=== PATIENT | female | born 1990 | race Caucasian/White ===

== ENCOUNTER 2019-12-14 13:15 | Outpatient (REF) | payer MEDICARE, MEDICAID, SELFPAY ==
--- NOTE | 2019-12-14 15:13 | MHC.AU.P13 ---
Adult Audiological Evaluation Date of Visit: 12/14/19 Reason for Appointment: History of suspected hearing loss. Has hearing been tested previously?: Yes Previous Hearing Test Results: At our clinic on 01/30/2019- Otoacoustic emissions were absent from 1-8 kHz in the right ear. In the left ear, emissions were reduced at 1.5-2, 4, and 8 kHz, and present at 1, 3, and 6 kHz. The reduced/absent emissions suggested hearing loss is likely present. Normal middle-ear function bilaterally. Patient did not consistently respond for testing in soundfield. On 03/05/2019, an auditory brainstem response (ABR) evaluation was performed at this clinic. At an 80 dBnHL click, the right ear produced waveforms of poor morphology that were not repeatable. This is suggestive of cochlear or retrocochlear pathology and hearing loss. The left ear had repeatable waveforms and good morphology at 80 dBnHL. Threshold ABR was attempted; however, there was too much myogenic noise to accurately determine thresholds. A sedated ABR was recommended. Medical History: Medical History: Autism Spectrum Disorder, Intellectual Disability, Diabetes, Hypertension Otoscopy: Right Ear: Unremarkable Left Ear: Mostly occluded with cerumen Tympanometry: Right Ear: Normal Middle Ear System (Type A) Left Ear: Hypercompliant Middle Ear System (Type Ad) Otoacoustic Emissions: Frequency Range Used: 1.6-8 kHz Right Ear Results: Absent Emissions Analysis: Absent emissions suggest cochlear dysfunction. Hearing loss may be present. Left Ear Results: Could Not Test Analysis: Testing attempted in left ear, but an adequate seal could not be obtained due to cerumen. Hearing Evaluation: Transducer(s) Used: Circumaural Headphones Method: Behavioral Observation Audiometry Right Ear: Description of Hearing: Patient did not consistently respond to tonal stimuli in either ear Left Ear: Description of Hearing: Patient did not consistently respond to tonal stimuli in either ear Comparison: Compared to most recent evaluation: Results continue to suggest dysfunction and hearing loss of the right ear. Further testing is needed to confirm. Recommendations: Follow-up with PCP is recommended to remove cerumen from the left ear. Patient has presented with abnormal OAEs and abnormal unsedated ABR results in her right ear. A sedated auditory brainstem response (ABR) is highly recommended to obtain objective thresholds, given the high suspicion of hearing loss. Diagnosis: Primary Diagnosis: H93.293 Abnormal Auditory Perception Services Performed: Services Performed: Limited Otoacoustic Emissions (CPT 85696) Tympanometry (CPT 83337) Signature: Provider: Jose Malone, CCC-A
== END 2019-12-14 13:16 | disposition home or self-care (01) ==
LOC: HO.SH 13:15
PROVIDERS: PCP Internal Medicine; Referring Provider Internal Medicine; Visit Provider Internal Medicine
DX: H93.293 Other abnormal auditory perceptions, bilateral (principal)
CPT/HCPCS: 92567; 92587

== ENCOUNTER 2021-07-19 14:25 | Outpatient (REF) | payer MEDICARE, MEDICAID, SELFPAY ==
--- NOTE | 2021-07-26 09:01 | MHC.AU.AEV ---
Adult Audiological Evaluation Date of Visit: 07/19/21 Reason for Appointment: History of suspected hearing loss, potentially worse in the right ear. Patient was initially seen at our clinic on 01/30/2019. In the right ear, otoacoustic emissions were absent from 3216-6689 Hz. In the left ear, otoacoustic emissions were reduced/absent at 1500, 2000, 4000, and 8000 Hz, and present/borderline at 1000, 3000, and 6000 Hz. Middle ear function was normal in the right ear. In the left ear, the tympanic membrane was hypercompliant (Type Ad). An auditory brainstem response (ABR) was recommended. On 03/05/2019, an unsedated ABR was performed at this clinic. Testing in the right ear revealed waveforms of poor morphology that did not replicate, suggesting the presence of hearing loss. In the left ear, there were repeatable waveforms with good morphology at 80 dBnHL. Threshold measurements were attempted, but myogenic noise was too high. A sedated ABR was recommended to obtain objective threshold measurements. It is uncertain if a sedated ABR has been performed. She arrives today for audiological re-evaluation. Patient is non-verbal and has history of traumatic brain injury at , developmental delay, cerumen impaction, and diabetes. Medical History: Medical History: Autism Spectrum Disorder, Intellectual Disability, Diabetes, Hypertension, Traumatic Brain Injury at Otoscopy: Right Ear: Unremarkable Left Ear: Completely occluded with cerumen Tympanometry: Tympanometry performed due to: To determine if cerumen blockage is fully occluding canal(s) Right Ear: Normal Middle Ear System (Type A) Left Ear: Small ear canal volume and non-compliant, consistent with cerumen occlusion Otoacoustic Emissions Did not test due to cerumen occlusion Interpretation of Results: Patient presents with complete cerumen occlusion of her left ear. Cerumen removal was attempted, but patient did not tolerate the procedure. Testing could not be performed today due to the cerumen occlusion. Recommendations: Follow-up with patient's PCP or an Ear, Nose, and Throat physician is highly recommended for cerumen removal. Regular use of a wax softening drop, such as EarWaxMD or Debrox, may be beneficial to prevent or lessen cerumen occlusions in the future. It is uncertain if a sedated ABR has been performed. A sedated ABR would allow objective, ear-specific information about her hearing to be obtained, which would be beneficial given the strong suspicion of hearing loss. A referral to a center that performs sedated ABRs (such as [facility] or [facility]) is recommended, if a sedated ABR has not already been performed. If her care team has decided not to pursue a sedated ABR at this time, then an audiological evaluation can be re-scheduled after cerumen removal. Diagnosis: Primary Diagnosis: H93.293 Abnormal Auditory Perception Signature: Provider: Jose Malone, CCC-A
== END 2021-07-19 14:26 | disposition home or self-care (01) ==
LOC: HO.SH 14:25
PROVIDERS: Visit Provider Internal Medicine
DX: Z01.118 Encounter for examination of ears and hearing with other abnormal findings (principal); H93.293 Other abnormal auditory perceptions, bilateral
CPT/HCPCS: 92567

== ENCOUNTER 2022-08-31 14:56 | Outpatient (REF) | payer MEDICARE, MEDICAID, SELFPAY | END 2022-08-31 14:57 | disposition home or self-care (01) | LOC: HO.SH 14:56 | PROVIDERS: Visit Provider Internal Medicine | DX: H61.22 Impacted cerumen, left ear (principal) | CPT/HCPCS: 92567 ==